=== PATIENT | male | born 1970 | race Caucasian/White ===

== ENCOUNTER 2016-11-11 14:05 | Emergency (ER) | payer BC ==
[2016-11-11] MEDS ORDERED: ASPIRIN 81 MG CHEW TAB ONE (14:18)
== END 2016-11-11 17:51 | disposition home or self-care (01) ==
LOC: ER 14:05
DX: R07.89 Other chest pain (principal)
CPT/HCPCS: 36415; 71010; 80053; 82550; 83735; 84484; 85025; 85610; 85730; 93005